=== PATIENT | male | born 1985 | race African-American/Black ===

== ENCOUNTER 2024-08-12 06:18 | Emergency (ER) | payer SELFPAY ==
[~2024-08-12] VITALS: Ht 180.3 cm; Wt 100.0 kg
[2024-08-12 06:24] VITALS: O2SAT 100
[2024-08-12 06:25] VITALS: TEMP 36.7; O2SAT 100
[2024-08-12] MEDS ORDERED: IBUP-2028 PO (07:39)
[2024-08-12 08:03] VITALS: BP 112/73; PULSE 87; RESP 16
[2024-08-12] MEDS: ACETAMINOPHEN WITH CODEINE 300/30MG TABLET PO ONE (08:03)
== END 2024-08-12 08:36 | disposition home or self-care (01) ==
LOC: ER 06:29
DX: S82.831A Other fracture of upper and lower end of right fibula, initial encounter for closed fracture (principal); X50.1XXA Overexertion from prolonged static or awkward postures, initial encounter; X58.XXXA Exposure to other specified factors, initial encounter; Y93.89 Activity, other specified; Y92.89 Other specified places as the place of occurrence of the external cause; Y99.8 Other external cause status
CPT/HCPCS: 29505; 29515; 73610; 99283